=== PATIENT | female | born 1975 | race Caucasian/White ===

== ENCOUNTER 2022-12-09 12:24 | Outpatient (REF) | payer BC, SELFPAY | END 2022-12-09 12:25 | disposition home or self-care (01) | LOC: HO.HOSX 12:24 | PROVIDERS: Visit Provider Physician Assistant | DX: Z13.89 Encounter for screening for other disorder (principal) ==

== ENCOUNTER 2022-12-10 11:50 | Outpatient (REF) | payer OTHER, SELFPAY ==
--- NOTE | ~2022-12-10 | XR_ITS ---
Please see standing the report for detail.
--- NOTE | ~2022-12-10 | XR_ITS ---
EXAMINATION: XR KNEE AP STANDING and 2 views left knee CLINICAL INFORMATION: Pain COMPARISON: None available. TECHNIQUE: AP bilateral standing view of the knees was obtained. 2 views left knee FINDINGS: Moderate effusion left knee. Early medial compartment narrowing. Trace marginal osteophytes. No focal bony lesion or abnormality. Mild spurring about the patellofemoral joint. XR/XR knee standing BI IMPRESSION: Joint effusion. Mild osteoarthritis as above.
== END 2022-12-10 11:51 | disposition home or self-care (01) ==
LOC: HO.HOSX 11:50
PROVIDERS: Visit Provider Physician Assistant
DX: M17.12 Unilateral primary osteoarthritis, left knee (principal); M23.92 Unspecified internal derangement of left knee
CPT/HCPCS: 20610; 73560; 73565; J1040

== ENCOUNTER 2022-12-10 11:50 | Outpatient (AMB) | payer OTHER, SELFPAY ==
--- NOTE | 2022-12-10 12:04 | MHC.OFFVIS ---
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 Patient reports having pain since October. She states she tripped not so long ago and she thinks it could be from that. Pain is on the medial aspect of the knee and moves down to the bottom of the knee cap. Allergies levofloxacin [From Levaquin] Allergy (Severe, Verified 12/10/22 12:07) Swelling HPI NAIL SPECIALIST-left knee pain HPI Details 47-year-old female who presents in the office today, as a new patient, for an evaluation of left knee pain. The patient reports her pain began in 10/2022 when she tripped. She feels the pain began with after this occurred. She claims her pain in on the medial aspect of the patella and radiates down to the bottom of the knee cap. She reports ?a lot? of edema. She states occasionally she gets a shooting pain behind the knee cap. She denies a history of cortisone injection in the left knee. She confirms she has been icing the knee for the past 2 months. She confirms 2 left knee arthroscopies. One when she was 16 and the other when she was in her 20?s. She states she stands on her feet all day and she has to twist the knee. She states she is struggling to twist the left knee. Patient denies a history of diabetes mellitus. [facility] Social History (Updated 12/10/22 @ 12:08 by Tiffany Pitt) Alcohol intake: former Patient Tobacco Use Status: Never used Tobacco Current occupational status: employed Current occupation: maki/ left hand dominant Review of Systems Const All systems reviewed & are unremarkable except as noted in HPI and below Physical Exam Vital Signs: BMI result Body Mass Index 37.3 Const General: cooperative, healthy appearing, comfortable, no acute distress, well developed and alert Orientation/consciousness: patient oriented x3 HEENT Head: Yes normal to inspection, Yes normocephalic and Yes atraumatic Eyes General: appearance normal, both eyes and all related structures Resp Effort & Inspection: normal respiratory effort and able to speak in complete sentences Cardio Rate: regular rate Peripheral pulses: Peripheral pulses 2+ throughout GI Palpation (GI): Soft to palpation Skin Lesions: no lesions Rashes: no rashes Neuro General: patient oriented x3 Extrem Other: Left knee: Mild effusion. No tenderness to palpation along the lateral joint line. Tenderness to palpation along the medial joint line. Unable to assess Mery's or anterior drawer due to patient guarding. Full flexion and extension. NVI. Office Procedures Joint Injection/Drain Joint Injection/Drain Primary Site: left knee Injected: 80 mg of, DepoMedrol, with 8 mL of (2% plain lido ) and in the joint Approach Used: anterolateral Procedure: The patient tolerated the procedure well, but had some pain with the injection and there was some relief with the local anesthesia Coding 14324 - Large joint Procedure code (CPT) selection complete Results Reviewed Results Reviewed: 12/10/22 12:17 Lidocaine HCl 2 % MPF [Xylocaine 2 % MPF] 5 ml .ROUTE .STK-MED ONE methylPREDNISolone acetate [DEPO-MedroL] 80 mg .ROUTE .STK-MED ONE Assessment & Plan Assessment & Plan (1) Internal derangement of left knee: Code(s): M23.92 - Unspecified internal derangement of left knee (2) Osteoarthritis of left knee: Code(s): M17.12 - Unilateral primary osteoarthritis, left knee Plan Ms. Ruiz is a 47-year-old female who presents in the office today, as a new patient, for an evaluation of left knee pain. The patient reports her pain began in 10/2022 when she tripped. She feels the pain began with after this occurred. She claims her pain in on the medial aspect of the patella and radiates down to the bottom of the knee cap. She reports ?a lot? of edema. She states occasionally she gets a shooting pain behind the knee cap. She denies a history of cortisone injection in the left knee. She confirms she has been icing the knee for the past 2 months. She confirms 2 left knee arthroscopies. One when she was 16 and the other when she was in her 20?s. She states she stands on her feet all day and she has to twist the knee. She states she is struggling to twist the left knee. Patient denies a history of diabetes mellitus. The patient was offered a cortisone injection in the left knee with 80 mg of DepoMedrol. The patient was explained the risk, benefits, and alternatives to receiving this injection. After receiving consent for the injection, the patient had the procedure done while in office today. The patient tolerated the procedure well with no complications. In the event the left knee continues to cause pain we will move forward with an MRI for further evaluation. Follow up will be PRN, or sooner if needed. X-rays of the left knee which were obtained while in the office today and were reviewed by me, Yumiko Ellis PA-C, revealed no acute fracture or dislocation. Osteoarthritis mainly patellofemoral. Orders: Orders XR knee LT 2V Today M25.569 - Pain in unspecified knee XR knee standing BI Today M25.569 - Pain in unspecified knee Patient Instructions: Scribed for Yumiko Ellis PA-C by Corine Azul medical affairs manager, on 12/10/2022 at 11:55 am, EST. Your attestation Coding Level of Care Code New Pt Level 4 (72827) Diagnoses Internal derangement of left knee M23.92 Osteoarthritis of left knee M17.12 CPT Codes Coding - 19449 Large joint: 27245 - Large joint ([id number])
[2022-12-10 12:08] VITALS: BMI 37.3
== END 2022-12-10 12:41 | disposition home or self-care (01) ==
PROVIDERS: Visit Provider Physician Assistant
DX: M23.92 Unspecified internal derangement of left knee (principal); M17.12 Unilateral primary osteoarthritis, left knee
CPT/HCPCS: 20610; 99204

== ENCOUNTER 2023-01-08 10:47 | Outpatient (AMB) | payer OTHER, SELFPAY ==
--- NOTE | 2023-01-08 10:47 | MHC.OFFVIS ---
Intake Vital Signs 01/08/23 10:52 Height 5 ft 7 in Weight 238 lb BMI 37.3 Intake Visit Reasons: OV-Left knee pain Intake Note: Bonnie is a 47 year old female who presents today for a follow up for her left knee pain, last injection 12/10/22. Patient reports her pain is getting worse and it in her medial aspect of the knee and in the knee cap. She states that her pain is so bad that she is using her cane which is helping her relief some of the pressure on the left knee. Allergies levofloxacin [From Levaquin] Allergy (Severe, Verified 01/08/23 10:50) Swelling HPI OV-Left knee pain HPI Details 47-year-old female who presents in the office today for a follow up of left knee pain. The patient had a cortisone injection in the left knee on 12/10/2022. She reports her pain has increased in the medial aspect of the left knee and in the knee cap. She claims her pain is so bad she is using a cane to ambulate. She states the cane gives some relief with pressure of the left knee. She states she is concerned long periods of standing are affecting the knee. Patient works as a maki. [facility] Social History Alcohol intake: former Patient Tobacco Use Status: Never used Tobacco Current occupational status: employed Current occupation: maki/ left hand dominant Review of Systems Const All systems reviewed & are unremarkable except as noted in HPI and below Physical Exam Vital Signs: BMI result Body Mass Index 37.3 Const General: cooperative, healthy appearing and no acute distress Resp Effort & Inspection: normal respiratory effort and able to speak in complete sentences Cardio Rate: regular rate Peripheral pulses: Peripheral pulses 2+ throughout GI Palpation (GI): Soft to palpation Skin Lesions: no lesions Rashes: no rashes Extrem Other: Left knee: Mild effusion. No tenderness to palpation along the lateral joint line. Tenderness to palpation along the medial joint line. Unable to assess Mery's or anterior drawer due to patient guarding. Full flexion and extension. NVI. Assessment & Plan Assessment & Plan (1) Internal derangement of left knee: Code(s): M23.92 - Unspecified internal derangement of left knee (2) Osteoarthritis of left knee: Code(s): M17.12 - Unilateral primary osteoarthritis, left knee Plan Ms. Bonnie is a 47-year-old female who presents in the office today for a follow up of left knee pain. The patient had a cortisone injection in the left knee on 12/10/2022. She reports her pain has increased in the medial aspect of the left knee and in the knee cap. She claims her pain is so bad she is using a cane to ambulate. She states the cane gives some relief with pressure of the left knee. She states she is concerned long periods of standing are affecting the knee. Patient works as a maki. The patient will be referred for an MRI for further evaluation the intrigty of the left knee. Follow up will be after the MRI is obtained, or sooner if needed. Orders: Orders MR knee LT wo con Today M17.12 - Unilateral primary osteoarthritis, left knee, M23.92 - Unspecified internal derangement of left knee Patient Instructions: Scribed for Yumiko Ellis PA-C by Corine Azul medical sales, on 01/08/2023 at 10:48 am, EST. Coding Level of Care Code Est Pt Level 3 (53328) Diagnoses Internal derangement of left knee M23.92 Osteoarthritis of left knee M17.12
[2023-01-08 10:52] VITALS: BMI 37.3
== END 2023-01-08 11:03 | disposition home or self-care (01) ==
PROVIDERS: Visit Provider Physician Assistant
DX: M23.92 Unspecified internal derangement of left knee (principal); M17.12 Unilateral primary osteoarthritis, left knee
CPT/HCPCS: 99214

== ENCOUNTER → 2023-01-08 10:47 | Outpatient (BNVA) | payer OTHER, SELFPAY | PROVIDERS: Visit Provider Physician Assistant ==

== ENCOUNTER 2023-02-10 17:50 | Outpatient (REF) | payer OTHER, SELFPAY ==
--- NOTE | ~2023-02-10 | MR_ITS ---
EXAMINATION: MR KNEE WITHOUT CONTRAST, LEFT CLINICAL INFORMATION: Medial/anterior left knee pain and swelling following a twisting injury. Prior meniscal repair. COMPARISON: Left knee radiographs dated 12/10/2022. TECHNIQUE: MRI of the knee without contrast was performed using routine sequences on a high-field scanner. FINDINGS: MENISCI: Medial Meniscus: Mild medial extrusion of the meniscal body with minimal degenerative intrasubstance signal. No articular surface tear. Lateral Meniscus: Intact . LIGAMENTS: Cruciate: Intact. Collateral: Edema adjacent to the medial collateral ligament which may be related to the meniscal tear or indicate a grade 1 sprain. Intact fibular collateral ligament. EXTENSOR MECHANISM: Intact. ARTICULAR CARTILAGE/BONE: Patellofemoral Compartment: Diffuse patellar articular cartilage signal heterogeneity with areas of full-thickness fissuring at the patellar median ridge. Lateral trochlear articular cartilage thinning and signal heterogeneity with inferior full-thickness fissuring. Tiny marginal osteophytes. Medial Compartment: At the medial-most aspect of the medial tibial plateau, there is focal cortical depression measuring up to 0.6 cm in ML dimension with adjacent marrow edema, consistent with a minimally depressed subchondral fracture. Diffuse weightbearing articular cartilage thinning with areas of full-thickness loss at the medial femoral condyle measuring up to 3.2 cm in AP dimension. Marginal osteophytes. Lateral Compartment: Mild articular cartilage signal heterogeneity with tiny marginal osteophytes. JOINT FLUID AND BURSAE: Moderate joint effusion. MR/MR knee LT wo con IMPRESSION: 1. Minimally depressed subchondral fracture at the medialmost aspect of the medial tibial plateau with adjacent marrow edema. 2. Mild medial extrusion of the medial meniscal body with minimal degenerative intrasubstance signal. No articular surface meniscal tear. 3. Edema adjacent to the medial collateral ligament which may be related to the meniscal tear or indicate a grade 1 sprain. 4. Moderate medial as well as mild patellofemoral and lateral compartment osteoarthritis. Moderate joint effusion.
== END 2023-02-10 17:51 | disposition home or self-care (01) ==
LOC: HO.MRI 17:50
PROVIDERS: PCP Family Medicine; Visit Provider Orthopaedic Surgery
DX: M17.12 Unilateral primary osteoarthritis, left knee (principal); M23.92 Unspecified internal derangement of left knee
CPT/HCPCS: 73721

== ENCOUNTER 2023-02-19 10:00 | Outpatient (AMB) | payer OTHER, SELFPAY ==
--- NOTE | 2023-02-19 10:09 | MHC.OFFVIS ---
Intake Intake Visit Reasons: OV-LT KNEE INTERNAL DERANGEMENT-MRI rev. Intake Note: Sara is a 47 year old female who presents today with partner for a MRI of her left knee. Patient reports she is still having continuos pain on her knee. Allergies levofloxacin [From Levaquin] Allergy (Severe, Verified 02/19/23 10:10) Swelling HPI OV-LT KNEE INTERNAL DERANGEMENT-MRI rev. HPI Details 47-year-old female who presents in the office today for a follow up of left knee pain and review of her MRI. The patient reports she has had continued pain in the left knee. She states the pain began in 10/2022. She states she is unsure how she injured it or if she did at all. She reports an incident where she fell and hit her knee, she believes this could have been around 10/2022. Her partner states she has had several trip and fall incidents. Her partner states she has been taking Ibuprofen, icing with elevation. He states the cortisone injection gave relief in other areas but did not give pain relief in the left knee. She states she is a very active person and is unable to sleep due to pain. The patient states she stands on her feet for a living and stands for about 9 hours daily. Her partner states she is not able to have a stool at her work station. He states it might not be possible for her to take 3 weeks off for recovery. 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 She confirms 2 prior surgeries on the left knee when she was [id number]. She is accompanied in the office today by her partner. [facility] Social History Alcohol intake: former Patient Tobacco Use Status: Never used Tobacco Current occupational status: employed Current occupation: maki/ left hand dominant Review of Systems Const All systems reviewed & are unremarkable except as noted in HPI and below Physical Exam Const General: cooperative, healthy appearing and no acute distress Resp Effort & Inspection: normal respiratory effort and able to speak in complete sentences Cardio Rate: regular rate Peripheral pulses: Peripheral pulses 2+ throughout GI Palpation (GI): Soft to palpation Skin Lesions: no lesions Rashes: no rashes Extrem Other: Left knee: Mild effusion. No tenderness to palpation along the lateral joint line. Tenderness to palpation along the medial joint line and anteromedial aspect of the tibia. Full flexion and extension. NVI. Assessment & Plan Assessment & Plan (1) Internal derangement of left knee: Code(s): M23.92 - Unspecified internal derangement of left knee (2) Osteoarthritis of left knee: Code(s): M17.12 - Unilateral primary osteoarthritis, left knee Qualifiers: Osteoarthritis type: unspecified Qualified Code(s): M17.12 - Unilateral primary osteoarthritis, left knee Plan Ms. Nicole is a 47-year-old female who presents in the office today for a follow up of left knee pain and review of her MRI. The patient reports she has had continued pain in the left knee. She states the pain began in 10/2022. She states she is unsure how she injured it or if she did at all. She reports an incident where she fell and hit her knee, she believes this could have been around 10/2022. Her partner states she has had several trip and fall incidents. Her partner states she has been taking Ibuprofen, icing with elevation. He states the cortisone injection gave relief in other areas but did not give pain relief in the left knee. She states she is a very active person and is unable to sleep due to pain. The patient states she stands on her feet for a living and stands for about 9 hours daily. Her partner states she is not able to have a stool at her work station. He states it might not be possible for her to take 3 weeks off for recovery. 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 She confirms 2 prior surgeries on the left knee when she was [id number]. She is accompanied in the office today by her partner. Dr. Ivy was available to see the patient with me while in the office today and a collaborative treatment plan was made. We discussed the role of conservative treatment (an unloading brace, Advil 800 mg TID, and physical therapy for the bilateral hips) verse a surgical intervention (left knee subchondroplasty). She will be referred to physical therapy to work on strengthening the bilateral hips. I am placing a prescription for a medial unloading brace with Sidney while in the office today. The office will call when the brace is ready for fitting. She will take Advil 800 mg TID. She was educated the importance of staying off the knee as much as possible for the next 4 weeks. I will give the patient a work note stating she will be on light duty restrictions. Follow up will be 4 weeks with me with Dr. Ivy in the office, or sooner if needed. MRI of the left knee, obtained on 02/10/2023, revealed: 1. Minimally depressed subchondral fracture at the medialmost aspect of the medial tibial plateau with adjacent marrow edema. 2. Mild medial extrusion of the medial meniscal body with minimal degenerative intrasubstance signal. No articular surface meniscal tear. 3. Edema adjacent to the medial collateral ligament which may be related to the meniscal tear or indicate a grade 1 sprain. 4. Moderate medial as well as mild patellofemoral and lateral compartment osteoarthritis. Moderate joint effusion. Orders: Orders PT Evaluation and Treatment Today M17.12 - Unilateral primary osteoarthritis, left knee, M23.92 - Unspecified internal derangement of left knee Medications: New [Left knee medial child center assistant brace] As directed 1 ea 0RF M17.12 - Unilateral primary osteoarthritis, left knee, M23.92 - Unspecified internal derangement of left knee [Left knee medial child center assistant brace] As directed 1 ea 0RF M17.12 - Unilateral primary osteoarthritis, left knee, M23.92 - Unspecified internal derangement of left knee Patient Instructions: Scribed for Yumiko Ellis PA-C by Corine Azul medical cost consultant, on 02/19/2023 at 10:04 am, EST. Coding Level of Care Code Est Pt Level 4 (68664) Diagnoses Internal derangement of left knee M23.92 Osteoarthritis of left knee, unspecified osteoarthritis type M17.12 Osteoarthritis type: unspecified
== END 2023-02-19 11:11 | disposition home or self-care (01) ==
PROVIDERS: PCP Family Medicine; Visit Provider Physician Assistant
DX: M23.92 Unspecified internal derangement of left knee (principal); M17.12 Unilateral primary osteoarthritis, left knee
CPT/HCPCS: 99213

== ENCOUNTER → 2023-02-19 10:00 | Outpatient (BNVA) | payer OTHER, SELFPAY | PROVIDERS: PCP Family Medicine; Visit Provider Physician Assistant ==

== ENCOUNTER 2023-04-08 11:00 | Outpatient (RCR) | payer OTHER, SELFPAY ==
--- NOTE | 2023-03-06 10:52 | MHC.PT.EP ---
[facility] [address] [facility] [place] [facility] [place] [facility] [address] Kathleen Leonardo [address] [phone] F: [phone] F: [phone] F: [phone] F: [phone] Physical Therapy Plan of Care Date of Evaluation: 03/06/23 Date of Surgery: NA Diagnosis: Unilateral OA of L knee Unspecified internal derangement of L knee Assessment: Sara is a 47 year old female who is referred to PT for unspecified internal derangement of L knee, unilateral OA of L knee . She reports of having sudden onset of swelling and pain in L knee about 4 months back. Denies any recent trauma or falls however has p/h/o knee surgery- 30 and 20 years back. On PT examination she presented with TTP over L knee medial joint line, 0-7/10 pain in L knee with sleeping, rolling in bed, standing, walking, sit to stand, and going down stairs, decreased knee ROM, decreased L LE strength, altered posture, balance and gait. She lives with her . She is independent with all ADLS but has pain with them. 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 Enjoys walks and roller skating but is not doing it due to pain. She would benefit from skilled PT to address the aforementioned impairments and improve tolerance to functional activities. Frequency and Duration: The patient will be seen 2/week for 5 weeks. Short Term Goals: 1. Pt will have 50% decrease in pain which will enable her to sleep through the night in 2 weeks. 2. Pt will be able to move L knee through full plane of motion without pain which will enable her to negotiate stairs without pain in 3 weeks. Senior Living Goals: 1. Pt will demonstrate an increase in muscle strength by 1 grade which will enable her to walk and stand without pain in 5 weeks. 2. Pt will be independent with all HEPs for symptom management and maintenance and return to PLOF in 5 weeks. Treatment Plan: Modalities to reduce pain, spasms and effusion. Manual therapy to restore motion and function. Therapeutic exercise to improve strength and flexibility. Neuromuscular re-education for posture and balance. Therapeutic activities to return to functional activities of daily living. Electronically signed by: Romelia Diaz PT DPT Please sign and return to therapist. Thank you for your referral.
--- NOTE | 2023-05-19 09:35 | MHC.PT.DC ---
[facility] [place] Office [place] Office [place] Office [address] Kathleen Leonardo [address] [phone] F: [phone] F: [phone] F: [phone] F: [phone] Physical Therapy Discharge Report Diagnosis: Unilateral OA of L knee Unspecified internal derangement of L knee Date of Surgery: NA Date of Evaluation: 03/06/23 Date of Discharge: 05/19/23 Treatments to Date: 7 Cancellations to Date: 0 No Shows to Date: Discharge Status: Achieved Goals Improved Function Independent with HEP Discharge Summary: Sara has completed 7 PT visits and achieved all goals set for her. She is independent with her HEP as well. She is therefore being d/c from PT. Electronically signed by: Romelia Diaz, PT DPT Please sign and return to therapist. Thank you for your referral.
== END 2023-05-19 09:35 | disposition home or self-care (01) ==
LOC: HO.PT 11:00
PROVIDERS: PCP Family Medicine; Visit Provider Physician Assistant
DX: M23.92 Unspecified internal derangement of left knee (principal); M17.12 Unilateral primary osteoarthritis, left knee
CPT/HCPCS: 97110; 97112; 97140; 97161; 97530

== ENCOUNTER 2023-05-15 13:02 | Outpatient (AMB) | payer OTHER, SELFPAY ==
--- NOTE | 2023-05-15 13:03 | MHC.OFFVIS ---
Intake Vital Signs 05/15/23 13:07 Height 5 ft 7 in Weight 238 lb BMI 37.3 Intake Visit Reasons: OV-LT KNEE INTERNAL DERANGEMENT-F/U Intake Note: Sara is a 47 year old female who presents today with partner for a evaluation of her left knee. She states that her brace helps her a little bit when she is using it when she is working. Allergies levofloxacin [From Levaquin] Allergy (Severe, Verified 05/15/23 13:06) Swelling HPI OV-LT KNEE INTERNAL DERANGEMENT-F/U HPI Details 47-year-old female who presents in the office today for a follow up of left knee pain. I last saw the patient with Dr. Ivy on 02/19/2023 where her MRI was reviewed and she was referred to physical therapy to work on strengthening the bilateral hips. I sent in a prescription for an steward/stewardess chief cargo vessel brace. She was instructed to allow the knee to rest as much as possible. She was placed on light duty restrictions. The patient reports the brace has been helping her a little. She confirms wearing the brace when she is working. [facility] Social History Alcohol intake: former Patient Tobacco Use Status: Never used Tobacco Current occupational status: employed Current occupation: maki/ left hand dominant Review of Systems Const All systems reviewed & are unremarkable except as noted in HPI and below Physical Exam Vital Signs: BMI result Body Mass Index 37.3 Const General: cooperative, healthy appearing and no acute distress Resp Effort & Inspection: normal respiratory effort and able to speak in complete sentences Cardio Rate: regular rate Peripheral pulses: Peripheral pulses 2+ throughout GI Palpation (GI): Soft to palpation Skin Lesions: no lesions Rashes: no rashes Extrem Other: Left knee: No effusion. No tenderness to palpation along the lateral joint line. Mild tenderness to palpation along the medial joint line and anteromedial aspect of the tibia. Full flexion and extension. NVI. Assessment & Plan Assessment & Plan (1) Internal derangement of left knee: Code(s): M23.92 - Unspecified internal derangement of left knee (2) Osteoarthritis of left knee: Code(s): M17.12 - Unilateral primary osteoarthritis, left knee Qualifiers: Osteoarthritis type: unspecified Qualified Code(s): M17.12 - Unilateral primary osteoarthritis, left knee Plan Ms. Nicole is a 47-year-old female who presents in the office today for a follow up of left knee pain. I last saw the patient with Dr. Ivy on 02/19/2023 where her MRI was reviewed and she was referred to physical therapy to work on strengthening the bilateral hips. I sent in a prescription for an steward/stewardess chief cargo vessel brace. She was instructed to allow the knee to rest as much as possible. She was placed on light duty restrictions. The patient reports the brace has been helping her a little. She confirms wearing the brace when she is working. The patient reports the physical therapy and knee bracing has shown some improvement in her symptoms. She states she does wear the brace at work and does have soreness at the end of the day. Therefore, we will defer moving forward with the prior discuss subcondroplasty. We have agreed that she will wait for 1 year from the injury, which occurred in 10/2022, to see if her symptoms resolve. In the event they do not she will come in to be seen to further evaluate for a subcondroplasty of the left knee. Follow up will be PRN, or sooner if needed. Patient Instructions: Scribed for Yumiko Ellis PA-C by Corine Azul medical claims representative, on 05/15/2023 at 1:11 pm, EST. Coding Level of Care Code Est Pt Level 3 (47600) Diagnoses Internal derangement of left knee M23.92 Osteoarthritis of left knee, unspecified osteoarthritis type M17.12 Osteoarthritis type: unspecified
[2023-05-15 13:07] VITALS: BMI 37.3
== END 2023-05-15 13:13 | disposition home or self-care (01) ==
PROVIDERS: PCP Family Medicine; Visit Provider Physician Assistant
DX: M23.92 Unspecified internal derangement of left knee (principal); M17.12 Unilateral primary osteoarthritis, left knee
CPT/HCPCS: 99213

== ENCOUNTER → 2023-05-15 13:02 | Outpatient (BNVA) | payer OTHER, SELFPAY | PROVIDERS: PCP Family Medicine; Visit Provider Physician Assistant ==